=== PATIENT | female | born 1945 | race Caucasian/White ===

== ENCOUNTER → 2019-03-17 | Outpatient (CLI) | payer OTHER, MEDICARE ==
[~2019-03-17] MED LIST: CALCIUM; CELEXA20 MG PO; CICLOPIROX30 GM; COZAAR; COZAAR100 MG PO; FISH OIL 1,001000 M2 PO; FISHOIL; FLONASE 0.05%50 MCG NASAL; FUROSEMIDE 40 M40 M1 PO; GLUCOPHAGE500 MG PO; HYDROCODONE-AP1 EAC6 PO; LEVOTHYROXIN0.125 M2 PO; LEVOTHYROXIN0.137 M1 PO; LIPITOR; LIPITOR 20 MG T20 M1 PO; LOTRISONE CREAM15 GM; MULTIVITAMINS PO; PEPCID20 MG PO; PROAIR HFA8.5 GM INH; VITAMIN B-6200 M1 PO; ZOFRAN ODT4 MG DISSOLVE
== END ==
LOC: ULTRA 08:34
DX: K82.8 Other specified diseases of gallbladder (principal)

== ENCOUNTER → 2019-04-10 | Outpatient (CLI) | payer OTHER, MEDICARE ==
[~2019-04-10] VITALS: Ht 162.6 cm; Wt 70.3 kg
[~2019-04-10] MED LIST changes: +AMLODIPINE BESY10 MG PO; +ANTACID LIQUID355 ML PO; +OMEPRAZOLE 20 M20 M1 PO; +TRAMADOL 50 MG50 MG PO
--- NOTE | 2019-04-12 11:07 | PATH ---
[facility] [place] [address] PATHOLOGY RPT PROCEDURE Name: LOTUS BAUTISTA Room #: REG [facility] Roby.#: [id number] ������������������ Admission: 04/10/19 ������������������ Date of : 45 Discharge: Report #: [id number] Path Case #: [id number] [facility] Accession Number: [id number] . 01 Material submitted: . PART A: stomach - BX STOMACH, R/O H PYLORI, GASTRITIS PART B: duodenum - BX DUODENUM R/T DUODENAL ULCER PART C: colon - BX POLYP AT SIGMOID COLON X5. Modifiers: sigmoid . 01 Clinical history: . Pre-op diagnosis: Gallstone sludge, abdominal pain Post-op diagnosis: Duodenal ulcer, gastritis, gastric ulcer, gastric diverticulum, colon polyps, hemorrhoids . 02 Diagnosis: A. Gastric mucosa, gastritis R/O H. pylori, endoscopic biopsy: - Mild reactive gastropathy. - Negative for intestinal metaplasia or atrophy. - Negative for Helicobacter pylori (properly controlled immunohistochemical stain performed). . B. Small bowel mucosa, duodenum R/O duodenal ulcer, endoscopic biopsy: - Fundic-type metaplastic mucosa associated with moderate acute and chronic inflammation, changes compatible with moderate active peptic duodenitis. - Negative for dysplasia (please see comment). . C. Polyp x5, sigmoid colon, endoscopic biopsy: - All fragments showing hyperplastic polyps. - Negative for dysplasia. (IUV:roberta; 04/11/2019) QMS/04/12/2019 . 02 Comment: Dr. Eva Gomez and Dr. Sil Augustin have seen traffic representative slide of part B of this case and concur with my diagnosis. (IUV:roberta; 04/11/2019) . 02 Electronically signed: . Vashti Kendall MD, Pathologist NPI- [id number] . 01 Gross description: . A. The specimen is received in formalin, labeled "Lotus Bautista, biopsy stomach/gastritis, R/O H. pylori". Received are six segments of pale boswell soft tissue ranging in size from 0.3 to 0.8 cm in maximum dimensions. The specimen is submitted entirely in cassette A1. [address] [address] PATHOLOGY RPT PROCEDURE Name: LOTUS BAUTISTA Room #: REG CLI Shayla#: [id number] ������������������ Admission: 04/10/19 ������������������ Date of : 45 Discharge: Report #: [id number] Path Case #: [id number] . B. The specimen is received in formalin, labeled "Lotus Bautista, biopsy duodenum". Received are five segments of pale boswell soft tissue ranging in size from 0.2 to 0.5 cm in maximum dimensions. The specimen is submitted entirely in cassette B1. . C. The specimen is received in formalin, labeled "Lotus Bautista, biopsy polyp at sigmoid colon". Received are seven segments of pale boswell soft tissue ranging in size from 0.2 to 0.6 cm in maximum dimensions. The specimen is submitted entirely in cassette C1. . Also received within the specimen container are two polypoid segments of light brown soft tissue measuring 0.7 x 0.6 x 0.5 and 0.9 x 0.7 x 0.5 cm in greatest dimensions. The surgical margins are inked and each segment is bisected. The specimen is submitted entirely in cassette C2. (CAA; 04/10/2019) QAC/QAC . 02 Pathologist provided ICD-10: K31.9, K29.80, K63.5 . 02 CPT . 571964, 416047, 582193, I02643 Specimen Comment: A courtesy copy of this report has been sent to Specimen Comment: [phone], . Specimen Comment: Report sent to / DR TANG Performed at: [address], [place] [id number] MD Reyes Perry MD Phone: [phone] Performed at: [address] [id number] MD Vashti Kendall MD Phone: [phone]
== END | disposition home or self-care (01) ==
LOC: GI 07:28
DX: Z12.11 Encounter for screening for malignant neoplasm of colon (principal); Z86.010 Personal history of colon polyps; K63.5 Polyp of colon; K64.8 Other hemorrhoids; K29.80 Duodenitis without bleeding; K31.4 Gastric diverticulum; K26.9 Duodenal ulcer, unspecified as acute or chronic, without hemorrhage or perforation; K31.9 Disease of stomach and duodenum, unspecified; K21.9 Gastro-esophageal reflux disease without esophagitis; I10 Essential (primary) hypertension; E78.5 Hyperlipidemia, unspecified; E11.9 Type 2 diabetes mellitus without complications; J45.909 Unspecified asthma, uncomplicated; E03.9 Hypothyroidism, unspecified; F32.9 Major depressive disorder, single episode, unspecified; F41.9 Anxiety disorder, unspecified; Z90.710 Acquired absence of both cervix and uterus; Z98.890 Other specified postprocedural states; Z88.8 Allergy status to other drugs, medicaments and biological substances; Z79.899 Other long term (current) drug therapy; Z87.891 Personal history of nicotine dependence
CPT/HCPCS: 62110; 62900

== ENCOUNTER → 2019-07-14 | Outpatient (CLI) | payer OTHER, MEDICARE ==
[~2019-07-14] VITALS: Ht 162.6 cm; Wt 76.2 kg
[~2019-07-14] MED LIST changes: +BRIMONIDINE TART5 ML OPHTHALMIC; +OMEPRAZOLE40 MG PO; +TIMOLOL MALEATE5 M1 OPHTHALMIC; +TOBRAMYCIN-DEXAM5 ML OPHTHALMIC; +VIBRAMYCIN 100100 MG PO
--- NOTE | 2019-07-17 16:06 | PATH ---
[facility] [address] [place] [address] PATHOLOGY RPT PROCEDURE Name: LOTUS BAUTISTA Room #: REG [facility] Roby.#: [id number] Admission: 07/14/19 Date of : 45 Discharge: Report #: [id number] Path Case #: [id number] [facility] Accession Number: [id number] . 01 Material submitted: . stomach - GASTRIC BX . 01 Clinical history: . Pre-OP DX: Recheck ulcer Post-OP DX: Gastritis . 02 Diagnosis: Gastric mucosa, gastric biopsy rule out Helicobacter pylori, endoscopic biopsy: - Mild chronic gastritis with features of reactive gastropathy. - Negative for intestinal metaplasia or atrophy. - Negative for Helicobacter pylori (properly controlled immunohistochemical stain performed). 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 02 Electronically signed: . Vashti Kendall MD, Pathologist NPI- [id number] . 01 Gross description: . Received in formalin labeled "Lotus Bautista, gastric BX, rule out H. pylori," are 4 segments of boswell soft tissue measuring 1.3 x 1.0 x 0.4 cm in aggregate dimensions and ranging from 0.5 to 0.6 cm in maximum dimension. The specimen is submitted entirely in cassette A1. (TSD; 07/14/2019) TOB/TOB 07/14/2019 1621 Local . 02 Pathologist provided ICD-10: K29.50 . 02 CPT . 807740, N09018 Specimen Comment: A courtesy copy of this report has been sent to Specimen Comment: [phone], . Specimen Comment: Report sent to / DR TANG Performed at: [address] [id number] MD Reyes Perry MD Phone: [phone] Performed at: [facility] [address] [place] [address] PATHOLOGY RPT PROCEDURE Name: LOTUS BAUTISTA Room #: REG CLI M.R.#: [id number] Admission: 07/14/19 Date of : 45 Discharge: Report #: [id number] Path Case #: [id number] [address] [place] [id number] MD Vashti Kendall MD Phone: [phone]
== END | disposition home or self-care (01) ==
LOC: GI 07-10 16:01
DX: K25.9 Gastric ulcer, unspecified as acute or chronic, without hemorrhage or perforation (principal); K29.50 Unspecified chronic gastritis without bleeding; K31.9 Disease of stomach and duodenum, unspecified; K31.4 Gastric diverticulum; I10 Essential (primary) hypertension; E11.9 Type 2 diabetes mellitus without complications; J45.909 Unspecified asthma, uncomplicated; E78.5 Hyperlipidemia, unspecified; E03.9 Hypothyroidism, unspecified; F32.9 Major depressive disorder, single episode, unspecified; F41.9 Anxiety disorder, unspecified; Z96.641 Presence of right artificial hip joint; Z90.710 Acquired absence of both cervix and uterus; Z98.890 Other specified postprocedural states; Z79.899 Other long term (current) drug therapy; Z88.8 Allergy status to other drugs, medicaments and biological substances; Z87.891 Personal history of nicotine dependence
CPT/HCPCS: 62110; 62900

== ENCOUNTER 2019-08-01 09:28 | Emergency (ER) | payer OTHER, MEDICARE ==
[~2019-08-01] VITALS: Ht 162.6 cm; Wt 76.2 kg
[~2019-08-01 09:28] MED LIST changes: -BRIMONIDINE TART5 ML OPHTHALMIC; -TIMOLOL MALEATE5 M1 OPHTHALMIC; -TOBRAMYCIN-DEXAM5 ML OPHTHALMIC; -VIBRAMYCIN 100100 MG PO
[2019-08-01] MEDS ORDERED: OMEPRAZOLE 20 M20 M1 PO (09:48)
[2019-08-01] MEDS ORDERED: BRIMONIDINE TART5 ML OPHTHALMIC (09:49)
[2019-08-01] MEDS ORDERED: TIMOLOL MALEATE5 M1 OPHTHALMIC (09:49)
[2019-08-01] MEDS ORDERED: TOBRAMYCIN-DEXAM5 ML OPHTHALMIC (09:50)
[2019-08-01] MEDS ORDERED: VIBRAMYCIN 100100 MG PO (12:20)
[2019-08-01 12:53] VITALS: BP 170/68
== END 2019-08-01 12:48 | disposition home or self-care (01) ==
LOC: ER 09:28
DX: S51.811A Laceration without foreign body of right forearm, initial encounter (principal); S70.01XA Contusion of right hip, initial encounter; I10 Essential (primary) hypertension; E78.5 Hyperlipidemia, unspecified; E11.9 Type 2 diabetes mellitus without complications; J45.909 Unspecified asthma, uncomplicated; F32.9 Major depressive disorder, single episode, unspecified; F17.210 Nicotine dependence, cigarettes, uncomplicated; Z90.710 Acquired absence of both cervix and uterus; Z96.641 Presence of right artificial hip joint; Z88.1 Allergy status to other antibiotic agents; Z88.8 Allergy status to other drugs, medicaments and biological substances; W10.8XXA Fall (on) (from) other stairs and steps, initial encounter; Y93.89 Activity, other specified; Y92.89 Other specified places as the place of occurrence of the external cause; Y99.8 Other external cause status

== ENCOUNTER → 2020-03-07 | Outpatient (CLI) | payer OTHER, MEDICARE ==
[~2020-03-07] MED LIST changes: +BRIMONIDINE TART5 ML OPHTHALMIC; +TIMOLOL MALEATE5 M1 OPHTHALMIC; +TOBRAMYCIN-DEXAM5 ML OPHTHALMIC; +VIBRAMYCIN 100100 MG PO
== END ==
LOC: ULTRA 13:33
DX: I73.89 Other specified peripheral vascular diseases (principal)

== ENCOUNTER → 2020-03-26 | Outpatient (CLI) | payer OTHER, MEDICARE ==
[~2020-03-26] MED LIST changes: +ALDACTAZIDE 251 EAC1 PO; +VALSARTAN160 MG PO
== END ==
LOC: SJCVC 09:26
PROVIDERS: ATTEND Nuclear Medicine Nuclear Cardiology
DX: I73.9 Peripheral vascular disease, unspecified (principal); I10 Essential (primary) hypertension; E78.00 Pure hypercholesterolemia, unspecified; E11.9 Type 2 diabetes mellitus without complications; E03.9 Hypothyroidism, unspecified; F17.210 Nicotine dependence, cigarettes, uncomplicated; Z79.84 Long term (current) use of oral hypoglycemic drugs; Z79.899 Other long term (current) drug therapy

== ENCOUNTER → 2020-04-01 | Outpatient (CLI) | payer OTHER, MEDICARE ==
[~2020-04-01] VITALS: Ht 162.6 cm; Wt 83.0 kg
[2020-04-01 07:16] VITALS: BP 122/52
[2020-04-01 07:37] LABS: ABSOLUTE NEUTROPHILS 4.6 thou/uL (1.4-8.2); BASOPHILS 0.7 % (0.0-2.0); EOSINOPHILS 1.4 % (0.0-3.0); HEMATOCRIT 39.6 % (37.0-47.0); MCH 30.8 pg (26.0-34.0); MCHC 32.9 g/dL (28.0-37.0); MCV 93.7 fL (80.0-100.0); MONOCYTES 4.8 % (1.0-8.0); PLATELET COUNT 169 thou/uL (150-400); POLYS 73.1 % (36.0-66.0); RBC 4.22 mil/uL (4.20-5.00); RDW 13.9 % (10.5-14.5); WBC 6.2 thou/uL (4.0-11.0)
[2020-04-01 07:44] LABS: CALCIUM 9.8 mg/dL (8.5-10.1); CREATININE 0.8 mg/dL (0.6-1.0)
[2020-04-01 07:47] LABS: POTASSIUM 4.6 mmol/L (3.5-5.1)
== END | disposition home or self-care (01) ==
LOC: CATH 02:09
PROVIDERS: ATTEND Nuclear Medicine Nuclear Cardiology
DX: I70.213 Atherosclerosis of native arteries of extremities with intermittent claudication, bilateral legs (principal); I70.1 Atherosclerosis of renal artery; I10 Essential (primary) hypertension; I25.10 Atherosclerotic heart disease of native coronary artery without angina pectoris; E11.9 Type 2 diabetes mellitus without complications; E78.5 Hyperlipidemia, unspecified; E03.9 Hypothyroidism, unspecified; F32.9 Major depressive disorder, single episode, unspecified; J45.909 Unspecified asthma, uncomplicated; K21.9 Gastro-esophageal reflux disease without esophagitis; F17.210 Nicotine dependence, cigarettes, uncomplicated; Z98.890 Other specified postprocedural states; Z79.899 Other long term (current) drug therapy; Z96.641 Presence of right artificial hip joint; Z90.710 Acquired absence of both cervix and uterus; Z88.8 Allergy status to other drugs, medicaments and biological substances; Z79.4 Long term (current) use of insulin

== ENCOUNTER → 2020-07-29 | Outpatient (CLI) | payer OTHER, MEDICARE | LOC: SJCVCIMAG 07-09 15:06 | PROVIDERS: ATTEND Internal Medicine Cardiovascular Disease | DX: I65.23 Occlusion and stenosis of bilateral carotid arteries (principal); I70.201 Unspecified atherosclerosis of native arteries of extremities, right leg; Z78.0 Asymptomatic menopausal state; Z87.891 Personal history of nicotine dependence ==

== ENCOUNTER → 2020-07-30 | Outpatient (CLI) | payer OTHER, MEDICARE | LOC: SJCVC 11:05 | PROVIDERS: ATTEND Nuclear Medicine Nuclear Cardiology | DX: R94.31 Abnormal electrocardiogram [ECG] [EKG] (principal); I73.9 Peripheral vascular disease, unspecified; I10 Essential (primary) hypertension; E78.00 Pure hypercholesterolemia, unspecified; I77.9 Disorder of arteries and arterioles, unspecified; E11.9 Type 2 diabetes mellitus without complications; E03.9 Hypothyroidism, unspecified; Z79.899 Other long term (current) drug therapy; Z87.891 Personal history of nicotine dependence; Z82.49 Family history of ischemic heart disease and other diseases of the circulatory system; Z95.5 Presence of coronary angioplasty implant and graft ==

== ENCOUNTER → 2021-01-13 | Outpatient (CLI) | payer OTHER, MEDICARE | LOC: BC 07:53 | PROVIDERS: ATTEND Family Medicine | DX: Z12.31 Encounter for screening mammogram for malignant neoplasm of breast (principal) ==